=== PATIENT | female | born 1980 | race Caucasian/White ===

== ENCOUNTER 2018-05-12 18:25 | Emergency (ER) | payer SELFPAY ==
[2018-05-12 18:43] VITALS: BP 147/97; PULSE 88; TEMP 98.1; BMI 24.0
--- NOTE | 2018-05-12 19:13 | PDOC ---
History of Present Illness - General History Source: Patient, Foot Worker Used Exam Limitations: No Limitations - History of Present Illness Initial Comments: 05/12/18 19:34 The patient is a 37 year old female with no significant past medical history who presents to the ED with chest discomfort earlier today. As per emergency medical service coordinator, the patient reports left sided chest discomfort with radiation to her left shoulder that started an hour prior to arrival. She states her left sided chest feels heavy. Patient denies any worsening or alleviating factors. Denies similar symptoms in the past. Denies shortness of breath or palpitations. Denies fever or chills. Denies nausea, vomiting, or diarrhea. Denies any other symptoms. PAST MEDICAL HISTORY: no significant history PAST SURGICAL HISTORY: no significant history FAMILY HISTORY: Grandmother and mother have a cardiac history and history of stroke. SOCIAL HISTORY: Pt recently moved to the from [facility] and does not speak [place]uneian. MEDICATIONS: reviewed ALLERGIES: As per nursing notes General: No fevers or chills, no weakness, no weight loss HEENT: No change in vision. No sore throat,. No ear pain CardioVascular: + chest discomfort. No shortness of breath Respiratory:No cough, or wheezing. Gastrointestinal: no nausea, vomiting, diarrhea or constipation, No rectal bleeding Genitourinary: No dysuria, hematuria, or frequency Musculoskeletal: No joint or muscle pain or swelling Neurologic: No headache, vertigo, dizziness or loss of consciousness Psychiatric: nor depression Skin: No rashes or easy bruising Endocrine: no increased thirst or abnormal weight change Allergic: no skin or latex allergy All other systems reviewed and normal General: Well-nourished well-developed individual, no acute distress HEENT: Throat: Normal, tonsils normal, no erythema or exudate Neck: Supple, no meningeal signs, no lymphadenopathy Eyes::Pupils equal reactive and round, extraocular motion intact Chest: Nontender to palpation Cardiac: S1-S2 normal, regular rate and rhythm, no murmurs rubs or gallops Respiratory: Lungs clear to auscultation bilateral Abdomen: Soft, nondistended, normal bowel sounds, nontender to palpation diffusely Extremities: Warm, dry, no cyanosis, clubbing, or edema Skin: No rashes Neuro: Alert and oriented x3, nonfocal exam, grossly intact, normal gait Psych: Normal mood and affect <Laura Muse - Last Filed: 05/12/18 19:33> - General History Source: Patient Exam Limitations: Language Barrier - History of Present Illness Initial Comments: 05/12/18 19:37 A portion of this note was documented by scribe services under my direction. I have reviewed the details of the note, within reason, and agree with the documentation with the following case summary and management plan written by me. Patient treated in the ED. Nursing notes are reviewed and incorporated into the medical decision-making. Vital signs reviewed. EKG was done that shows normal sinus rhythm at a rate of 87, no acute ST-T wave changes, normal intervals, normal EKG History was via nurses educator of the translation service as patient speaks Yoruba. Assessment and plan: This is a 37-year-old female who comes in complaining of left-sided chest pain. Patient is unable to adequately describe the pain and there is no associated symptoms. Patient describes it as a vague discomfort. Patient's heart score was 1. Patient's cardiogram was normal and her troponin was negative. Patient discharged and told to follow-up with her primary care doctor <Jennifer Rodriguez I - Last Filed: 05/12/18 20:18> - General Chief Complaint: Pain, Acute Stated Complaint: CHEST PAIN Time Seen by Provider: 05/12/18 19:12 Past History <Laura Muse - Last Filed: 05/12/18 19:33> - Past Medical History COPD: No Other medical history: DENIES - Suicide/Smoking/Psychosocial Hx Smoking History: Current every day smoker Number of Cigarettes Smoked Daily: 3 Information on smoking cessation initiated: Yes 'Breaking Loose' booklet given: 05/12/18 Hx Alcohol Use: No Drug/Substance Use Hx: No Substance Use Type: None <Jennifer Rodriguez I - Last Filed: 05/12/18 20:18> - Past Medical History Allergies/Adverse Reactions: Allergies Allergy/AdvReac Type Severity Reaction Status Date / Time No Known Allergies Allergy Verified 05/12/18 18:36 Home Medications: Ambulatory Orders NK [No Known Home Medication] 05/12/18 *Physical Exam - Vital Signs Last Vital Signs Temp Pulse Resp BP Pulse Ox 98.1 F 88 18 147/97 100 05/12/18 18:37 05/12/18 18:37 05/12/18 18:37 05/12/18 18:37 05/12/18 18:37 <Laura uMse - Last Filed: 05/12/18 19:33> - Vital Signs Last Vital Signs Temp Pulse Resp BP Pulse Ox 98.1 F 88 18 147/97 100 05/12/18 18:37 05/12/18 18:37 05/12/18 18:37 05/12/18 18:37 05/12/18 18:37 <Jennifer Rodriguez I - Last Filed: 05/12/18 20:18> Heart Score/ECG Review - History History: Slightly suspicious - Electrocardiogram EKG: Normal ([]) - Age Age: </= 45 - Risk Factors Risk Factors Heart Score: Yes Smoking History Based on the list above the patient has:: 1-2 risk factors - Troponin Troponin: </= normal limit - Score Heart Score - Total: 1 <Jennifer Rodriguez I - Last Filed: 05/12/18 20:18> *DC/Admit/Observation/Transfer - Attestations Scribe Attestion: 05/12/18 19:34 Documentation prepared by Laura Muse, acting as medical delivery technician for Jennifer Rodriguez MD. <Laura Muse - Last Filed: 05/12/18 19:33> - Discharge Dispostion Decision to Admit order: No <Jennifer Rodriguez I - Last Filed: 05/12/18 20:18> Diagnosis at time of Disposition: Atypical chest pain - Discharge Dispostion Disposition: HOME Condition at time of disposition: Stable - Patient Instructions Additional Instructions: Your cardiogram was normal and your workup was negative for this being cardiac. Return to the emergency department immediately with ANY new, persistent or worsening symptoms. Continue any medications as previously prescribed by your physician. You should follow up with your primary doctor as soon as possible regarding today's emergency department visit. . Please make sure your doctor reviews the results of your emergency evaluation. Thank you for coming to the Emergency Department today for your care. It was a pleasure to see you today. Please note that your evaluation is INCOMPLETE until you follow-up with your doctor.
[2018-05-12] MEDS ORDERED: MAG HYDROX/AL HYDROX/SIMETH 30 ML UNIT-DOSE CUP PO ONE (19:34)
[2018-05-12] MEDS ORDERED: MAG HYDROX/AL HYDROX/SIMETH 30 ML UNIT-DOSE CUP ONE (19:38)
--- NOTE | 2018-05-13 23:52 | EKG ---
Test Reason : Blood Pressure : / mmHG Vent. Rate : 087 BPM Atrial Rate : 087 BPM P-R Int : 188 ms QRS Dur : 092 ms QT Int : 378 ms P-R-T Axes : 059 066 044 degrees QTc Int : 454 ms NORMAL SINUS RHYTHM NORMAL ECG NO PREVIOUS ECGS AVAILABLE Confirmed by SAM MORALES MD ([id number]) on 05/13/2018 11:51:47 PM Referred By: KENDRA Confirmed By:SAM MORALES MD
== END 2018-05-12 20:55 | disposition home or self-care (01) ==
LOC: EDBD → FER 18:25
DX: R07.89 Other chest pain (principal)
CPT/HCPCS: 36415; 82550; 84484; 93005; 99282-25